=== PATIENT | female | born 1980 | race Caucasian/White ===

== ENCOUNTER 2020-03-27 07:16 | Emergency (ER) | payer OTHER ==
[2020-03-27 08:33] VITALS: PULSE 66
--- NOTE | 2020-03-27 08:44 | CR ---
DATE OF SERVICE: 03/27/20 CLINICAL DATA: chest pain AP CHEST: Comparison is made to a prior exam dated 11/26/18. The heart size is normal. The lungs are clear. No change from the prior exam. No evidence of acute intrathoracic disease. [id number] [facility]
[2020-03-27] MEDS ORDERED: Sodium Chloride 0.9% 1,000 ML IV ONE (08:51)
[2020-03-27] MEDS ORDERED: Ketorolac 60 MG/2 ML SDV IVPUSH ONE (08:51)
[2020-03-27] MEDS ORDERED: Metoclopramide 10 MG/2 ML SDV IV ONE (08:51)
[2020-03-27] MEDS ORDERED: Nitroglycerin 0.4 MG Tab.SL SL PRN (10:33)
[2020-03-27 10:40] VITALS: BP 122/78
--- NOTE | 2020-03-27 12:34 | EDM.PDOC ---
ED HPI GENERAL MEDICAL PROBLEM - General Chief Complaint: Chest Pain Stated Complaint: SOB, CHEST PAIN Time Seen by Provider: 03/27/20 08:30 Source of Information: Reports: Patient History Limitations: Reports: No Limitations - History of Present Illness INITIAL COMMENTS - FREE TEXT/NARRATIVE: Patient is a 40 y/o female, with PMHx significant for hypothyroid, who presents with chest tightness, headache, and dizziness. Patient describes the chest tightness as constant, dull, and radiating to her back. She denies fever, cough, SOB, vision changes, abdominal pain, N/V/D, and numbness/tingling. - Related Data Allergies Allergy/AdvReac Type Severity Reaction Status Date / Time No Known Allergies Allergy Verified 03/27/20 09:56 Past Medical History - Past Health History Medical/Surgical History: Denies Medical/Surgical History Gastrointestinal History: Reports: Other (See Below) Other Gastrointestinal History: Frequent stomach upset; no official diagnosis - Past Surgical History GI Surgical History: Reports: None Social & Family History - Tobacco Use Smoking Status *Q: Former Smoker Used Tobacco, but Quit: Yes Month/Year Tobacco Last Used: 01/2016 Second Hand Smoke Exposure: No - Caffeine Use Caffeine Use: Reports: None - Alcohol Use Days Per Week of Alcohol Use: 2 Number of Drinks Per Day: 2 Total Drinks Per Week: 4 - Recreational Drug Use Recreational Drug Use: No ED ROS GENERAL - Review of Systems Review Of Systems: Comprehensive ROS is negative, except as noted in HPI. ED EXAM, GENERAL - Physical Exam Exam: See Below Exam Limited By: No Limitations General Appearance: Alert, No Apparent Distress Eye Exam: Bilateral Eye: EOMI, Normal Inspection, PERRL Nose: Normal Inspection Head: Atraumatic, Normocephalic Neck: Normal Inspection, Supple, Non-Tender, Full Range of Motion Respiratory/Chest: No Respiratory Distress, Lungs Clear, Normal Breath Sounds, No Accessory Muscle Use, Chest Non-Tender Cardiovascular: Normal Peripheral Pulses, Regular Rate, Rhythm, No Edema, No Murmur Peripheral Pulses: 2+: Radial (L), Radial (R), Posterior Tibial (L), Posterior Tibial (R) GI/Abdominal: Normal Bowel Sounds, Soft, Non-Tender, No Distention Neurological: Alert, Oriented, CN II-XII Intact, Normal Cognition, Normal Gait, No Motor/Sensory Deficits Skin Exam: Warm, Dry, Intact EKG INTERPRETATION EKG Date: 03/27/20 Time: 07:54 Rhythm: NSR Rate (Beats/Min): 82 Roberts: Normal P-Wave: Present QRS: Normal ST-T: Normal QT: Normal Comparison: NA - No Prior EKG Course - Vital Signs Text/Narrative:: MACE score is 0% risk for heart disease. TSH is 6.6 (patient takes levothyroxine 100 mcg daily). Cr 1.09. Patient was given reglan, toradol, and 1 L NS with resolution of headache and dizziness. 1 Nitro was given and chest pain was resolved. Troponin and repeat troponin negative. DDimer negative. Discussed with Dr. Banks and prescription sent for levothyroxine 125 mcg daily. She will follow up with Dr. Banks in 3 days. Patient unable to get COVID testing here and will go elsewhere to get tested. 2 days no work. Lots of fluid and rest. Return to ED for fever >102, unable to tolerate fluids, difficulty breathing/swallowing, and/or persistent/worsening symptoms. Last Recorded V/S: Last Vital Signs Temp 37.2 C 03/27/20 08:22 Pulse 66 03/27/20 08:22 Resp 16 03/27/20 08:22 BP 122/78 03/27/20 10:37 Pulse Ox 100 03/27/20 08:22 - Orders/Labs/Meds Orders: Active Orders 24 hr Category Date Time Status EKG Documentation Completion [RC] ASDIRECTED Care 03/27/20 07:35 Active CORONAVIRUS COVID-19 RAPID [MOLEC] Urgent Lab 03/27/20 07:35 Ordered Labs: Laboratory Tests 03/27/20 03/27/20 03/27/20 Range/Units 08:00 08:00 08:00 WBC 7.8 (4.0-11.0) K/uL RBC 4.66 (3.80-5.80) M/uL Hgb 13.8 (11.5-16.5) g/dL Hct 40.6 (37.0-47.0) % MCV 87 (76-96) fL MCH 29.6 (27.0-32.0) pg MCHC 34.0 (31.0-35.0) g/dL RDW 12.5 (11.0-16.0) % Plt Count 216 D (150-500) K/uL MPV 10.8 H (6.0-10.0) fL Neut % (Auto) 73.1 H (45.0-70.0) % Lymph % (Auto) 21.9 (20.0-40.0) % Carson % (Auto) 4.4 (3.0-10.0) % Eos % (Auto) 0.3 L (1.0-5.0) % Baso % (Auto) 0.3 (0.0-0.5) % Neut # (Auto) 5.71 (2.00-7.50) K/uL Lymph # (Auto) 1.71 (1.50-4.00) K/uL Carson # (Auto) 0.34 (0.20-0.80) K/uL Eos # (Auto) 0.02 L (0.04-0.40) K/uL Baso # (Auto) 0.02 (0.02-0.10) K/uL D-Dimer, Quantitative < 100 (0-400) ng/mL Sodium 139 (136-145) mmol/L Potassium 4.1 (3.5-5.1) mmol/L Chloride 103 (98-107) mmol/L Carbon Dioxide 26.4 (21.0-32.0) mmol/L Anion Gap 13.7 (5.0-15.0) mmol/L BUN 12 D (8-26) mg/dL Creatinine 1.08 H (0.55-1.02) mg/dL Est Cr Clr Drug Dosing 59.00 mL/min Estimated GFR (MDRD) 57 L (>60) MLS/MIN BUN/Creatinine Ratio 11.1 (6-25) Glucose 106 H (74-100) mg/dL Calcium 8.4 L (8.5-10.1) mg/dL Total Bilirubin 0.4 (0.0-1.0) mg/dL AST 14 L (15-37) U/L ALT 19 (12-78) U/L Alkaline Phosphatase 75 (46-116) U/L Troponin I < 0.017 (0.000-0.060) ng/mL Total Protein 7.7 (6.4-8.2) g/dL Albumin 3.8 (3.4-5.0) g/dL Globulin 3.9 (2.2-4.2) g/dL Albumin/Globulin Ratio 1.0 (0.8-2.0) TSH, Ultra Sensitive (0.358-3.740) uIU/mL Urine Color Urine Appearance (CLEAR) Urine pH (5.0-8.0) Ur Specific [place] (1.003-1.030) Urine Protein (NEGATIVE) mg/dL Urine Glucose (UA) (NEGATIVE) mg/dL Urine Ketones (NEGATIVE) mg/dL Urine Occult Blood (NEGATIVE) Urine Nitrite (NEGATIVE) Urine Bilirubin (NEGATIVE) Urine Urobilinogen (0.2-1.0) E.U./dL Ur Leukocyte Esterase (NEGATIVE) 03/27/20 03/27/20 03/27/20 Range/Units 08:34 08:43 11:00 WBC (4.0-11.0) K/uL RBC (3.80-5.80) M/uL Hgb (11.5-16.5) g/dL Hct (37.0-47.0) % MCV (76-96) fL MCH (27.0-32.0) pg MCHC (31.0-35.0) g/dL RDW (11.0-16.0) % Plt Count (150-500) K/uL MPV (6.0-10.0) fL Neut % (Auto) (45.0-70.0) % Lymph % (Auto) (20.0-40.0) % Carson % (Auto) (3.0-10.0) % Eos % (Auto) (1.0-5.0) % Baso % (Auto) (0.0-0.5) % Neut # (Auto) (2.00-7.50) K/uL Lymph # (Auto) (1.50-4.00) K/uL Carson # (Auto) (0.20-0.80) K/uL Eos # (Auto) (0.04-0.40) K/uL Baso # (Auto) (0.02-0.10) K/uL D-Dimer, Quantitative (0-400) ng/mL Sodium (136-145) mmol/L Potassium (3.5-5.1) mmol/L Chloride (98-107) mmol/L Carbon Dioxide (21.0-32.0) mmol/L Anion Gap (5.0-15.0) mmol/L BUN (8-26) mg/dL Creatinine (0.55-1.02) mg/dL Est Cr Clr Drug Dosing mL/min Estimated GFR (MDRD) (>60) MLS/MIN BUN/Creatinine Ratio (6-25) Glucose (74-100) mg/dL Calcium (8.5-10.1) mg/dL Total Bilirubin (0.0-1.0) mg/dL AST (15-37) U/L ALT (12-78) U/L Alkaline Phosphatase (46-116) U/L Troponin I < 0.017 (0.000-0.060) ng/mL Total Protein (6.4-8.2) g/dL Albumin (3.4-5.0) g/dL Globulin (2.2-4.2) g/dL Albumin/Globulin Ratio (0.8-2.0) TSH, Ultra Sensitive 6.620 H (0.358-3.740) uIU/mL Urine Color Yellow Urine Appearance Clear (CLEAR) Urine pH 5.5 (5.0-8.0) Ur Specific [place] 1.015 (1.003-1.030) Urine Protein Negative (NEGATIVE) mg/dL Urine Glucose (UA) Negative (NEGATIVE) mg/dL Urine Ketones Negative (NEGATIVE) mg/dL Urine Occult Blood Negative (NEGATIVE) Urine Nitrite Negative (NEGATIVE) Urine Bilirubin Negative (NEGATIVE) Urine Urobilinogen 0.2 (0.2-1.0) E.U./dL Ur Leukocyte Esterase Negative (NEGATIVE) Meds: Medications Discontinued Medications Generic Name Dose Route Start Last Admin Trade Name Freq PRN Reason Stop Dose Admin Sodium Chloride 1,000 mls @ 1,000 mls/sec 03/27/20 08:51 03/27/20 09:15 Normal Saline IV 03/27/20 08:52 1,000 mls/sec .BOLUS ONE Administration Ketorolac Tromethamine 30 mg 03/27/20 08:51 03/27/20 09:07 Toradol IVPUSH 03/27/20 08:52 30 mg ONETIME ONE Administration Metoclopramide HCl 10 mg 03/27/20 08:51 03/27/20 09:05 Reglan IV 03/27/20 08:52 10 mg ONETIME ONE Administration Nitroglycerin 0.4 mg 03/27/20 10:33 03/27/20 10:37 Nitrostat SL 0.4 mg Q5M PRN Administration Chest Pain Departure - Departure Time of Disposition: 12:00 Disposition: Home, Self-Care 01 Condition: Good Clinical Impression: Chest pain Qualifiers: Chest pain type: unspecified Qualified Code(s): R07.9 - Chest pain, unspecified Instructions: Thyroid-Stimulating Hormone Test, Nonspecific Chest Pain, Adult, [id number], Angina, [id number] Referrals: PCP,None [Primary Care Provider] - Forms: ED Department Discharge Care Plan Goals: You were treated for dehydration and assessed for your chest discomfort including an EKG and troponin levels with no negative results indicated. Your TSH levels are elevated and it is recommended you make an appointment with your PCP to assess medication levels and or adjustments. You indicated symptoms that are related to COVID 19 testing protocols and it is recommended you receive an rapid test performed at another facility as soon as possible. Sepsis Event Note (ED) - Evaluation Sepsis Screening Result: No Definite Risk - Focused Exam Vital Signs: Vital Signs Temp Pulse Resp BP BP Pulse Ox 03/27/20 10:37 122/78 03/27/20 08:22 37.2 C 66 16 140/91 H 100 - My Orders Last 24 Hours: My Active Orders 03/27/20 07:35 EKG Documentation Completion [RC] ASDIRECTED CORONAVIRUS COVID-19 RAPID [MOLEC] Urgent - Assessment/Plan Last 24 Hours: My Active Orders 03/27/20 07:35 EKG Documentation Completion [RC] ASDIRECTED CORONAVIRUS COVID-19 RAPID [MOLEC] Urgent
== END 2020-03-27 12:06 | disposition home or self-care (01) ==
LOC: LB.ED 07:16
DX: R07.89 Other chest pain (principal); Z87.891 Personal history of nicotine dependence
CPT/HCPCS: 36415; 71045; 80053; 81003; 84443; 84484; 85025; 85379; 93005; 96374; 96375; 99283; 99285-25; J1885; J2765; J7030